=== PATIENT | female | born 1990 | race African-American/Black ===

== ENCOUNTER 2018-12-15 17:19 | Outpatient (CLI) | payer OTHER ==
[2018-12-15 17:53] LABS: PLATELET COUNT 334 K/uL (152-353)
[2018-12-15 18:06] LABS: POTASSIUM 3.6 mmol/L (3.6-5.2)
== END 2018-12-15 20:42 | disposition home or self-care (01) ==
LOC: LABW 17:19
PROVIDERS: Family Medicine
DX: R10.31 Right lower quadrant pain (principal)
CPT/HCPCS: 36415; 80053; 85027; Q9963